=== PATIENT | female | born 1945 | race African-American/Black ===

== ENCOUNTER 2021-02-16 06:31 | Emergency (ER) | payer OTHER ==
[~2021-02-16] VITALS: Ht 165.1 cm; Wt 68.0 kg
[2021-02-16 08:03] VITALS: BP 108/82
== END 2021-02-16 10:07 | disposition home or self-care (01) ==
LOC: ER 06:31
DX: R05.9 Cough, unspecified (principal); E78.00 Pure hypercholesterolemia, unspecified; I10 Essential (primary) hypertension; Z98.890 Other specified postprocedural states; Z20.822 Contact with and (suspected) exposure to COVID-19
CPT/HCPCS: 71045; 87426; 99284